=== PATIENT | male | born 1940 | race Caucasian/White ===

== ENCOUNTER 2023-09-18 20:37 | Emergency (ER) | payer MEDICARE, BC ==
[~2023-09-18] VITALS: Ht 167.6 cm; Wt 63.6 kg
[2023-09-18 20:52] VITALS: BP 124/88; PULSE 56; RESP 15; TEMP 98.5; O2SAT 99
[2023-09-18 20:56] LABS: BASOPHILS # (AUTO) 0.1 X10'3 (0-0.2); BASOPHILS % (AUTO) 1.2 % (0-1); EOSINOPHILS # (AUTO) 0.1 X10'3 (0-0.9); EOSINOPHILS % (AUTO) 1.9 % (0-6); HEMATOCRIT 38.6 % (42.0-52.0); HEMOGLOBIN 13.1 g/dl (14.0-17.9); LYMPHOCYTES # (AUTO) 1.8 X10'3 (1.1-4.8); LYMPHOCYTES % (AUTO) 22.9 % (21-51); MEAN CORPUSCULAR HEMOGLOBIN 31.8 PG (27.0-31.0); MEAN CORPUSCULAR HGB CONC 33.8 g/dL (33.0-36.5); MEAN CORPUSCULAR VOLUME 93.9 FL (78-98); MEAN PLATELET VOLUME 8.4 FL (7.4-10.4); MONOCYTES # (AUTO) 0.9 X10'3 (0-0.9); NEUTROPHILS # (AUTO) 4.9 X10'3 (1.8-7.7); PLATELET COUNT 226 X10'3 (140-440); RED BLOOD COUNT 4.11 X10'6 (4.70-6.10); WHITE BLOOD COUNT 7.8 X10'3 (4.5-11.0)
[2023-09-18 21:11] LABS: ALANINE AMINOTRANSFERASE 31 U/L (12-78); ALBUMIN/GLOBULIN RATIO 1.2 (1.1-1.5); ALKALINE PHOSPHATASE 67 IU/L (46-116); ANION GAP 7 (8-16); ASPARTATE AMINO TRANSFERASE 27 U/L (10-37); BILIRUBIN,TOTAL 0.5 MG/DL (0.1-1.0); BLOOD UREA NITROGEN 44 MG/DL (7-18); BUN/CREATININE RATIO 25.6 (10.0-20.0); CALCIUM 8.9 MG/DL (8.5-10.1); CHLORIDE 105 MMOL/L (99-107); CREATININE 1.72 MG/DL (0.60-1.10); GLUCOSE 83 MG/DL (70-104); POTASSIUM 5.9 MMOL/L (3.5-5.1); SODIUM 139 MMOL/L (135-145); TOTAL CARBON DIOXIDE 26.6 MMOL/L (24-32); TOTAL PROTEIN 7.3 G/DL (6.4-8.2); eCRCL 29 ML/MIN; eGFR 38 ML/MIN
[2023-09-18 21:18] LABS: PRO BRAIN NATRIURETIC PEPTIDE 313 PG/ML (0-450)
[2023-09-23] MEDS ORDERED: ATOR20TA10 PO (13:12)
[2023-09-23] MEDS ORDERED: NITR0.4T51 SL (13:12)
[2023-09-23] MEDS ORDERED: LOP12.5T PO (13:12)
[2023-09-23] MEDS ORDERED: ASPI81TA52 PO (13:12)
[2023-09-23] MEDS ORDERED: CELE-127 PO (13:12)
[2023-09-23] MEDS ORDERED: LISI20TA28 PO (13:12)
[2023-09-23] MEDS ORDERED: ECHI400C17 PO (13:12)
[2023-09-23] MEDS ORDERED: diclofenac cream TOP (13:12)
[2023-09-23] MEDS ORDERED: ISOS120T13 PO (13:12)
[2023-09-23] MEDS ORDERED: MULT-1249 PO (13:12)
== END 2023-09-19 02:14 | disposition left against medical advice (07) ==
LOC: ER 20:38
DX: R07.89 Other chest pain (principal); R06.00 Dyspnea, unspecified
CPT/HCPCS: 36415; 71045; 80053; 83880; 84484; 85025; 93005; 99281; 99285